=== PATIENT | female | born 1935 | race Caucasian/White ===

== ENCOUNTER 2022-09-14 12:11 | Emergency (ER) | payer MEDICARE ==
[~2022-09-14] VITALS: Ht 152.4 cm; Wt 60.0 kg
[2022-09-14 12:16] VITALS: BP 195/87
[2022-09-14] MEDS ORDERED: T3 PO (14:29)
== END 2022-09-14 14:48 | disposition home or self-care (01) ==
LOC: ER 12:11
DX: S50.02XA Contusion of left elbow, initial encounter (principal); S09.8XXA Other specified injuries of head, initial encounter; M25.552 Pain in left hip; I10 Essential (primary) hypertension; W01.0XXA Fall on same level from slipping, tripping and stumbling without subsequent striking against object, initial encounter; Y93.89 Activity, other specified; Y92.018 Other place in single-family (private) house as the place of occurrence of the external cause
CPT/HCPCS: 73060; 73080; 73502; 99284